=== PATIENT | female | born 1940 | race Caucasian/White ===

== ENCOUNTER 2024-08-18 20:21 | Emergency (ER) | payer MEDICARE, SELFPAY ==
[2024-08-18] VITALS (44 sets, daily range): BP systolic 51–103; BP diastolic 23–54; PULSE 68–91; RESP 15–35; TEMP 35.4–36.3; O2SAT 94–100
--- NOTE | ~2024-08-18 | XR_ITS ---
CHEST RADIOGRAPH CLINICAL HISTORY: ET TUBE PLACEMENT . COMPARISON: None available TECHNIQUE: Single portable view of the chest. Examination is markedly limited by patient rotation and kyphosis. FINDINGS Endotracheal tube is identified with its tip projecting approximately 3 cm above the base of the gabrielle na. Nasogastric tube identified with its tip extending below the left hemidiaphragm, presumably within th e stomach. The superior mediastinum is widened, likely secondary to positioning. The remainder of the cardiomediastinal silhouette is otherwise unremarkable. Alveolar infiltrate within the left mid to lower lung field. Massive gaseous distention of the stomach IMPRESSION: Left mid to lower lobe infiltrate Widening of the mediastinum, likely secondary to positioning. Massive gaseous distention of the stomach. Supportive devices in excellent radiographic placement. Reviewed, dictated and finalized at location A. GOLF PROFESSIONAL
--- NOTE | ~2024-08-18 | CT_ITS ---
CLINICAL INDICATION: Altered mental status, sepsis, hypotension, abdominal distention COMPARISON: None. TECHNIQUE: Multiple contiguous axial images of the abdomen and pelvis were performed without the admi nistration of intravenous contrast The dose-length product (DLP) was 1871.04 mGy-cm. Automated exposure control and iterative reconstruction technique were employed. FINDINGS/OBSERVATIONS: Chest: Bilateral pleural effusions, with adjacent consolidation left greater than right. The heart is enlarged, without pericardial effusion. Abdomen and pelvis: Copious amounts of free intraperitoneal air are identified. No retroperitoneal air is appreciated. 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 Multiple loops of dilated air and fluid-filled small bowel are identified, consistent with bowel obst ruction. Significant fecal stasis within the colon. 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 The epicenter of this air is within the upper stomach, both surrounding the fundus of the stomach, an d extending laterally across the gastric wall into the perigastric and perisplenic fat. Free extraluminal air is also identified outlining the second and third portion of the duodenum, as w ell as within the lesser sac. Orogastric tube extends to the stomach. IMPRESSION: Copious amounts of free intraperitoneal air, possibly originating from the stomach, however additiona l findings suggestive of distal colon and small bowel obstruction, secondary to fecal stasis within t he colon. These findings were discussed with torito Garcia nurse in the emergency department at 11:55 PM on 08/19 Reviewed, dictated and finalized at location A. TAL MARKETING ANALYST IMPRESSION: Copious amounts of free intraperitoneal air, possibly originating from the stom ach, however additional findings suggestive of distal colon and small bowel obs truction, secondary to fecal stasis within the colon. These findings were discussed with Radha charge nurse in the emergency departm ent at 11:55 PM on 08/19/2024
--- NOTE | ~2024-08-18 | XR_ITS ---
CHEST RADIOGRAPH CLINICAL HISTORY: CENTRAL LINE PLACEMENT . COMPARISON: Image of the chest post intubation performed 30 minutes earlier TECHNIQUE: Single portable view of the chest. FINDINGS Endotracheal tube approximately 3 cm above the base of the jani. Orogastric tube extends below the left hemidiaphragm, presumably within the stomach. Interval decompression of the stomach since previous radiograph. Interval placement of a right internal jugular central venous catheter with its tip projecting over t he cavoatrial junction. The right lung is fully inflated. Coarse interstitial lung markings within the left hemithorax. IMPRESSION: Interval placement of a right internal jugular central venous catheter in excellent position and read y for immediate use. Reviewed, dictated and finalized at location A. INE II CUTTER IMPRESSION: Interval placement of a right internal jugular central venous catheter in excel lent position and ready for immediate use.
--- NOTE | ~2024-08-18 | CT_ITS ---
History: Altered mental status. Sepsis and hypotension PROCEDURE: CT head without contrast. COMPARISON: None TECHNIQUE: Axial imaging of the head performed from the skull base to the vertex without IV contrast. Sagittal a nd coronal reformations obtained. DLP: 681 mGy-cm FINDINGS: The ventricles are enlarged. The dilatation of the ventricles is proportional to the degree of sulcal prominence, not uncommon in the senescent brain. Decreased attenuation is identified within the periventricular white matter, likely secondary to micr ovascular ischemic disease, in a patient of this age. There is no mass, mass effect or midline shift. There is no abnormal extra-axial fluid collection or intracranial hemorrhage. Visualized paranasal sinuses are clear. The mastoid air cells are well aerated. No acute displaced fractures within the overlying cranium. Impression: No acute intracranial hemorrhage or suspicious mass effect. Reviewed, dictated and finalized at location A. F COINS INSPECTOR Impression: No acute intracranial hemorrhage or suspicious mass effect.
--- NOTE | ~2024-08-18 | CT_ITS ---
History: Altered mental status PROCEDURE: CT cervical spine without intravenous contrast. COMPARISON: None TECHNIQUE: Multiple contiguous axial images of the cervical spine were performed without the administration of i ntravenous contrast. DLP: 424 mGy-cm FINDINGS: Straightening and slight reversal of the normal curvature of the cervical spine is identified, possib ly muscular in origin. Grade 1 anterolisthesis of C2 on 2 C3. Significant degenerative disease is also noted, with osteophyte formation, disc space narrowing, endp late changes and facet arthropathy. A heterogeneous appearance of the bone marrow is also detected for which a systemic process is suspec vini. No acute fractures are present. Right apical scarring which will be evaluated further on this CT examination of the chest abdomen and pelvis, performed the same day. No soft tissue abnormality is present. The airway is patent with endotracheal tube in position. Impression: Straightening and slight reversal of the normal curvature of the cervical spine, possibly muscular in origin. 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 Reviewed, dictated and finalized at location A. TECH Impression: Straightening and slight reversal of the normal curvature of the cervical spine , possibly muscular in origin. 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
--- NOTE | 2024-08-18 20:29 | ECG_ITS ---
Test Date: 2024-08-18 20:30:04 Measurements Intervals [place] Rate: 96 P: 43 OR: 237 QRS: 107 QRSD: 146 T: -21 QT: 351 QTc: 444 Interpretive Statements SINUS RHYTHM WITH FIRST DEGREE AV BLOCK RIGHT BUNDLE BRANCH BLOCK LEFT POSTERIOR FASCICULAR BLOCK BASELINE ARTIFACT-- II, III, AVR, V3-V6 ABNORMAL ECG No previous ECG available for comparison Electronically Signed On 08-19-2024 06:11:37 KNOCKER OUT by Bro Albert D.O.
--- NOTE | 2024-08-18 20:44 | PC.NURSE ---
Dr. Villeda at bedside advising intubation of patient. 18 G Iv established in left upper arm and 25 mm IO placed left tibial tuberosity. 20 mg of Etomidate administered 2047; 100 mg Rocuronium administered at 2048. Patient intubated with a 7.5 cm ETT with positive colormetric and auscultation at 25 @ the lip. VORB for 1 mg of Dilaudid and 2 mg of Ativan at 2047 for sedation. VORB for 3 L of Normal Saline. Natarajan catheter placed at 2049. OG placed by NILA Villeda.
[2024-08-18] MEDS: LORazepam INJ (*CRX) 2 MG/ML VIAL (20:48)
[2024-08-18] MEDS: HYDROmorphone HCL INJ (*CRX) 1 MG/ML SYR (20:49)
[2024-08-18] MEDS: NOREPINEPHRINE 8 MG/D5W 250 ML 8 MG/250 ML BAG 9.38 MG IV CONT (21:18)
--- NOTE | 2024-08-18 21:38 | ED.GENADULT ---
HPI - General Adult General Chief complaint: Altered Mental Status <Donny Villeda MD - Last Filed: 08/18/24 22:31> Stated complaint: SOB <Donny Villeda MD - Last Filed: 08/18/24 22:31> Time Seen by Provider: 08/18/24 20:54 <Donny Villeda MD - Last Filed: 08/18/24 22:31> History of Present Illness HPI narrative: This is an 84-year-old woman from the senior living presenting for shortness of breath. shelter found her on rounds hypoxic in the 70s on room air. That time she was responsive to pain breathing actually. EMS was called and they used a BVM to raise her saturations to the 90s. The patient cannot provide any information due to altered mental status. Patient had DNR DNI comfort measures paperwork signed by her son. I called her son to inform her of the patient's condition. When I explained that she was critically ill and that her paperwork said comfort measures only he revoked he DNR DNI said that he wanted full treatment. Patient's son is currently in [place] and cannot come to bedside. <Donny Villeda MD - Last Filed: 08/18/24 22:31> Related Data Allergies/adverse reactions: Allergies Allergy/AdvReac Type Severity Reaction Status Date / Time Sulfa (Sulfonamide Allergy Rash Verified 08/18/24 22:15 Antibiotics) <Donny Villeda MD - Last Filed: 08/18/24 22:31> Exam Narrative: APPEARANCE: Patient is toxic appearing, she is breathing agonally, Head: atraumatic. EYES: EOMI, NOSE: Atraumatic NECK: Trachea midline RESPIRATORY: Hypoxic on room air, agonal breathing CARDIOVASCULAR: Poor cap refill ABDOMINAL: Distended, colostomy bag in place with bulging around the base MUSCULOSKELETAl: No obvious deformities NEURO: Responds to voice, moves 4 extremities to pain SKIN:: Pale cool diaphoretic PSYCHIATRIC: Lethargic <Donny Villeda MD - Last Filed: 08/18/24 22:31> Course Course Emergency Course: Patient signed out to me at shift change, intubated and mechanically ventilated, central line in place with norepi initiated, pending results of work up. Cr 1.83 with no prior for comparison thus likely AMANDA versus acute renal failure. 2nd pressor started. Imaging as below. Notified Dr Flores of the findings of imaging but of severity of clinical condition and that remains hemodynamically unstable with poor prognosis and will attempt to discuss with family again given no other family members have arrived. Discussed with Dr Brandt and Dr kwan as well. Patient has no/scant urine output. She remains significantly hypotensive with systolic blood pressure ranging between 40 and 60 despite 2 vasopressors at their maximum. Spoke with patient's son Levi at length on the phone and explained the findings of her work up so far. He and other family are on vacation currently. He asked about timeline as it related to prognosis and I explained the gravity of her condition. We discussed a more comfort focused approach, discontinuing pressors and extubating and allowing her body to respond with a natural . He does agree to this and asks that I call him back when she passes. Pressors stopped and extubated by RT. Patient quickly expires. Pupils fixed and dilated, no heart sounds or spontaneous respirations, no gag reflex. Time of 02:40 on 08/19/24. Called son Levi again to inform her of her . Family state she had been at a senior living in [facility] for nearly 20 years and her medical care had been through [facility] / [facility] prior to this. PCP had been Dr Aceves but they don't know if he is retired. Will likely choose a home in [place], [place] though will look into this. Request care coordination call them at any time once they arrive to walk through next steps. CRITICAL CARE = 60 minutes independent of separately billable procedures. Includes time spent at patient's bedside evaluating her, ordering additional labs/studies and interpreting them, discussions with family and consultants/hospital teams, managing care, and documenting. <Elly Coffey MD - Last Filed: 08/19/24 14:50> Vital Signs Vital signs: Vital Signs Temperature 97.4 F L 08/18/24 20:22 Pulse Rate 91 08/18/24 20:22 Respiratory Rate 31 H 08/18/24 20:22 Blood Pressure 76/52 L 08/18/24 20:22 Pulse Oximetry 96 08/18/24 20:22 Oxygen Delivery Non-Rebreather Mask 08/18/24 20:22 Oxygen Flow Rate 15 08/18/24 20:22 Temperature 98.3 F 08/19/24 01:46 Pulse Rate 64 08/19/24 02:19 Respiratory Rate 18 08/19/24 01:46 Blood Pressure 44/28 L 08/19/24 02:19 Pulse Oximetry 94 08/19/24 01:42 Oxygen Delivery Mechanical Ventilation 08/19/24 01:30 Oxygen Flow Rate 15 08/18/24 20:22 Fraction of Inspired Oxygen 50 08/19/24 01:30 <Donny Villeda MD - Last Filed: 08/18/24 22:31> Vital Signs Temperature 97.4 F L 08/18/24 20:22 Pulse Rate 91 08/18/24 20:22 Respiratory Rate 31 H 08/18/24 20:22 Blood Pressure 76/52 L 08/18/24 20:22 Pulse Oximetry 96 08/18/24 20:22 Oxygen Delivery Non-Rebreather Mask 08/18/24 20:22 Oxygen Flow Rate 15 08/18/24 20:22 Temperature 98.3 F 08/19/24 01:46 Pulse Rate 64 08/19/24 02:19 Respiratory Rate 18 08/19/24 01:46 Blood Pressure 44/28 L 08/19/24 02:19 Pulse Oximetry 94 08/19/24 01:42 Oxygen Delivery Mechanical Ventilation 08/19/24 01:30 Oxygen Flow Rate 15 08/18/24 20:22 Fraction of Inspired Oxygen 50 08/19/24 01:30 <Elly Coffey MD - Last Filed: 08/19/24 14:50> Procedures Central Line Placement Right IJ: Central Line Date: 08/18/24 <Donny Villeda MD - Last Filed: 08/18/24 22:31> Discussed w/ the patient/family/POA,the placement of a central venous catheter, including its clinical necessity/indication & associated potential risks, benifits and alternatives.: Yes <Donny Villeda MD - Last Filed: 08/18/24 22:31> The patient/family/POA understand(s) and acknowledge(s) the need to proceed with central venous catheter insertion as an important element of the patient's clinical management.: Yes <Donny Villeda MD - Last Filed: 08/18/24 22:31> Performed Emergently - Given emergent patient condition, temporal constraints may have precluded informed consent.: Yes <Donny Villeda MD - Last Filed: 08/18/24 22:31> Time Out Performed: Yes <Donny Villeda MD - Last Filed: 08/18/24 22:31> Patient Placed on Monitor/Pulse Ox: Yes <Donny Villeda MD - Last Filed: 08/18/24 22:31> Max. Sterile Barrier Technique: Caps <Donny Villeda MD - Last Filed: 08/18/24 22:31> Central Line Prep: 2% chlorhexidine scrub and sterile drapes applied <Donny Villeda MD - Last Filed: 08/18/24 22:31> Technique: US-Guided <Donny Villeda MD - Last Filed: 08/18/24 22:31> Ultrasound Used for Placement: Yes <Donny Villeda MD - Last Filed: 08/18/24 22:31> Post Procedure: sutured in place <Donny Villeda MD - Last Filed: 08/18/24 22:31> Post Procedure X-Ray: tip of catheter in good position and no pneumothorax seen <Donny Villeda MD - Last Filed: 08/18/24 22:31> Patient Tolerated Procedure: well <Donny Villeda MD - Last Filed: 08/18/24 22:31> Complications: none <Donny Villeda MD - Last Filed: 08/18/24 22:31> Intubation Intubation #1: Intubation Date: 08/18/24 <Donny Villeda MD - Last Filed: 08/18/24 22:31> Time out performed: Yes <Donny Villeda MD - Last Filed: 08/18/24 22:31> sedative: Etomidate <Donny Villeda MD - Last Filed: 08/18/24 22:31> Mg Given: 20 <Donny Villeda MD - Last Filed: 08/18/24 22:31> paralytic: Rocuronium <Donny Villeda MD - Last Filed: 08/18/24 22:31> Mg Given: 100 <Donny Villeda MD - Last Filed: 08/18/24 22:31> Laryngoscope: Gala (Video layrngoscope) <Donny Villeda MD - Last Filed: 08/18/24 22:31> Tube Size (cm): 7.5 <Donny Villeda MD - Last Filed: 08/18/24 22:31> Method of Intubation: orotracheal <Donny Villeda MD - Last Filed: 08/18/24 22:31> Number of Attempts: 1 <Donny Villeda MD - Last Filed: 08/18/24 22:31> Tube Secured Depth (cm): 23 <Donny Villeda MD - Last Filed: 08/18/24 22:31> Tube Secured Location: teeth <Donny Villeda MD - Last Filed: 08/18/24 22:31> Tube Placement Confirmation: visualized tube passing through cords, equal breath sounds bilaterally, no breath sounds over epigastrium and confirmation by capnometry <Donny Villeda MD - Last Filed: 08/18/24 22:31> Patient Tolerated Procedure: well <Donny Villeda MD - Last Filed: 08/18/24 22:31> Intubation Complications: none <Donny Villeda MD - Last Filed: 08/18/24 22:31> Medical Decision Making MDM Narrative Medical decision making narrative: -Course: 84-year-old female presenting and extremis. Hypoxic, hypotensive cool to touch. Patient's comfort measures only however when I called to inform her son of his could her condition he rescinded all DNR/DNI/comfort measures and wants full code. I explained to him the patient's clinical situation and unfortunately he is out of town and is not willing to make her comfort measures at this time. The patient was intubated. She was then hypotensive required fluid resuscitation and norepinephrine. She was started on broad-spectrum antibiotics. Workup was pending at the time of sign-out she has been signed out to the oncoming physician will require admission -DDX includes but is not limited to: Sepsis, pneumonia, UTI, dehydration, viral syndrome <Donny Villeda MD - Last Filed: 08/18/24 22:31> Vital Signs Vital Signs: Vital Signs Temperature 97.4 F L 08/18/24 20:22 Pulse Rate 91 08/18/24 20:22 Respiratory Rate 31 H 08/18/24 20:22 Blood Pressure 76/52 L 08/18/24 20:22 Pulse Oximetry 96 08/18/24 20:22 Oxygen Delivery Non-Rebreather Mask 08/18/24 20:22 Oxygen Flow Rate 15 08/18/24 20:22 Temperature 98.3 F 08/19/24 01:46 Pulse Rate 64 08/19/24 02:19 Respiratory Rate 18 08/19/24 01:46 Blood Pressure 44/28 L 08/19/24 02:19 Pulse Oximetry 94 08/19/24 01:42 Oxygen Delivery Mechanical Ventilation 08/19/24 01:30 Oxygen Flow Rate 15 08/18/24 20:22 Fraction of Inspired Oxygen 50 08/19/24 01:30 <Donny Villeda MD - Last Filed: 08/18/24 22:31> Vital Signs Temperature 97.4 F L 08/18/24 20:22 Pulse Rate 91 08/18/24 20:22 Respiratory Rate 31 H 08/18/24 20:22 Blood Pressure 76/52 L 08/18/24 20:22 Pulse Oximetry 96 08/18/24 20:22 Oxygen Delivery Non-Rebreather Mask 08/18/24 20:22 Oxygen Flow Rate 15 08/18/24 20:22 Temperature 98.3 F 08/19/24 01:46 Pulse Rate 64 08/19/24 02:19 Respiratory Rate 18 08/19/24 01:46 Blood Pressure 44/28 L 08/19/24 02:19 Pulse Oximetry 94 08/19/24 01:42 Oxygen Delivery Mechanical Ventilation 08/19/24 01:30 Oxygen Flow Rate 15 08/18/24 20:22 Fraction of Inspired Oxygen 50 08/19/24 01:30 <Elly Coffey MD - Last Filed: 08/19/24 14:50> Lab Data Result diagrams: 08/18/24 21:40 08/18/24 21:40 <Donny Villeda MD - Last Filed: 08/18/24 22:31> Labs: Lab Results 08/18/24 08/18/24 08/19/24 Range/Units 21:40 21:41 00:11 WBC 14.5 H (4.5-10.0) K/mm3 RBC 3.19 L (4.2-5.4) M/mm3 Hgb 10.0 L (12.0-15.0) g/dL Hct 32.8 L (37.0-47.0) % MCV 102.8 H (80-100) fl MCH 31.3 (26-34) pg MCHC 30.5 L (32-36) g/dl RDW 14.8 H (11.5-14.5) % Plt Count 171 (150-375) k/mm3 MPV 12.2 H (7.4-10.4) fl Immature Gran % (Auto) Not Reportable Neut % (Auto) Not Reportable Lymph % (Auto) Not Reportable [place] % (Auto) Not Reportable Eos % (Auto) Not Reportable Baso % (Auto) Not Reportable Lymph # (Auto) Not Reportable [place] # (Auto) Not Reportable Eos # (Auto) Not Reportable Baso # (Auto) Not Reportable Abs Immat Gran (auto) Not Reportable Absolute Neuts (auto) Not Reportable Absolute Nucleated RBC Not Reportable Total Counted 100 Neutrophils % (Manual) 73 (46-73) % Band Neutrophils % 8 H (0-6) % Lymphocytes % (Manual) 12.0 L (18-44) % Monocytes % (Manual) 7 (3-9) % Nucleated RBC % Not Reportable Abs Neuts (Manual) 11.74 H (1.7-7.2) K/mm3 Abs Lymphs (Manual) 1.74 (1.1-4.5) K/mm3 Abs Monocytes (Manual) 1.01 H (0.1-0.90) K/mm3 Platelet Estimate Adequate (Adequate) Hypochromasia 1+ Schistocytes None seen PT 16.4 H (11.1-14.7) Seconds INR 1.3 APTT 28.2 (22.3-36.8) Seconds Minute Volume Not Reportable Vent Mode Cmv Tidal Volume 400 ml PEEP 5 cmH2O Peak Inspir Pressure Not Reportable Pressure Support Not Reportable Sodium 142 (137-145) mmol/L Potassium 3.8 (3.4-5.0) mmol/L Chloride 106 (98-107) mmol/L Carbon Dioxide 17 L (22-30) mmol/L Anion Gap 19 H (4-12) mmol/L BUN 38 H (7-17) mg/dL Creatinine 1.83 H (0.7-1.0) mg/dL Estim Creat Clear Calc 23 ml/min Estimated GFR 26 L (59 - ) Glucose 287 H (65-110) mg/dL Lactic Acid 8.9 H* (0.7-2.0) mmol/L Calcium 9.2 (8.4-10.2) mg/dL Phosphorus 5.0 H (2.5-4.5) mg/dL Magnesium 1.2 L (1.6-2.3) mg/dL Total Bilirubin 0.3 (0.2-1.3) mg/dL AST 26 (14-36) U/L ALT 23 (6-35) U/L Alkaline Phosphatase 50 (38-126) U/L Total Creatine Kinase 147 H (30-135) U/L Troponin I 0.037 H* (0.000-0.034) ng/mL NT-Pro-B Natriuret Pep 1120 H (19.9-100) pg/mL Total Protein 5.0 L (6.3-8.2) g/dL Albumin 2.4 L (3.5-5.1) g/dL Lipase 3713 H (23-300) U/L Procalcitonin 0.1 ng/mL TSH 22.800 H (0.465-4.680) uIU/mL Thyroxine (T4) (5.53-11.0) ug/dL Urine Color Dark yellow (Yellow) Urine Appearance Turbid H (Clear) Urine pH 5.0 (5.0-9.0) Ur Specific [place] 1.021 (1.001-1.035) Urine Protein 1+ H (Negative) mg/dL Urine Glucose (UA) Negative (Negative) mg/dL Urine Ketones Trace H (Negative) mg/dL Ur Blood (Man) Negative (Negative) Urine Nitrate Negative (Negative) Urine Bilirubin Negative (Negative) Urine Urobilinogen 1.0 (<2.0) mg/dL Leukocyte Esterase Rfl 3+ H (Negative) SARAHY/UL Urine RBC >100 H (0-2) /hpf Urine WBC >100 H (0-3) /hpf Ur Squamous Epith Cells Occasional (Few) /hpf Urine Bacteria 4+ /hpf Urine Casts >20 Hyaline Casts Present (None) /lpf Nasal MRSA (PCR) Not detected (NOT DETECTE) Salicylates < 1.0 L (2-20) mg/dL Urine Opiates Screen Negative (Negative) Urine Methadone Screen Negative (Negative) Acetaminophen < 10 L (10-30) ug/mL Ur Barbiturates Screen Negative (Negative) Ur Phencyclidine Scrn Negative (Negative) Ur Amphetamine Screen Negative (Negative) U Benzodiazepines Scrn Negative (Negative) Urine Cocaine Screen Negative (Negative) U Cannabinoids Screen Negative (Negative) Ethyl Alcohol < 10 (<10) mg/dL Influenza A (RT-PCR) Negative (Negative) Influenza B (RT-PCR) Negative (Negative) RSV (RT-PCR) Negative (Negative) SARS-CoV-2 RNA (RT-PCR) Negative (Negative) 08/19/24 08/19/24 Range/Units 01:28 21:40 WBC (4.5-10.0) K/mm3 RBC (4.2-5.4) M/mm3 Hgb (12.0-15.0) g/dL Hct (37.0-47.0) % MCV (80-100) fl MCH (26-34) pg MCHC (32-36) g/dl RDW (11.5-14.5) % Plt Count (150-375) k/mm3 MPV (7.4-10.4) fl Immature Gran % (Auto) Neut % (Auto) Lymph % (Auto) [place] % (Auto) Eos % (Auto) Baso % (Auto) Lymph # (Auto) [place] # (Auto) Eos # (Auto) Baso # (Auto) Abs Immat Gran (auto) Absolute Neuts (auto) Absolute Nucleated RBC Total Counted Neutrophils % (Manual) (46-73) % Band Neutrophils % (0-6) % Lymphocytes % (Manual) (18-44) % Monocytes % (Manual) (3-9) % Nucleated RBC % Abs Neuts (Manual) (1.7-7.2) K/mm3 Abs Lymphs (Manual) (1.1-4.5) K/mm3 Abs Monocytes (Manual) (0.1-0.90) K/mm3 Platelet Estimate (Adequate) Hypochromasia Schistocytes PT (11.1-14.7) Seconds INR APTT (22.3-36.8) Seconds Minute Volume Vent Mode Tidal Volume ml PEEP cmH2O Peak Inspir Pressure Pressure Support Sodium (137-145) mmol/L Potassium (3.4-5.0) mmol/L Chloride (98-107) mmol/L Carbon Dioxide (22-30) mmol/L Anion Gap (4-12) mmol/L BUN (7-17) mg/dL Creatinine (0.7-1.0) mg/dL Estim Creat Clear Calc ml/min Estimated GFR (59 - ) Glucose (65-110) mg/dL Lactic Acid 6.5 H* (0.7-2.0) mmol/L Calcium (8.4-10.2) mg/dL Phosphorus (2.5-4.5) mg/dL Magnesium (1.6-2.3) mg/dL Total Bilirubin (0.2-1.3) mg/dL AST (14-36) U/L ALT (6-35) U/L Alkaline Phosphatase (38-126) U/L Total Creatine Kinase (30-135) U/L Troponin I (0.000-0.034) ng/mL NT-Pro-B Natriuret Pep (19.9-100) pg/mL Total Protein (6.3-8.2) g/dL Albumin (3.5-5.1) g/dL Lipase (23-300) U/L Procalcitonin ng/mL TSH (0.465-4.680) uIU/mL Thyroxine (T4) 2.63 L (5.53-11.0) ug/dL Urine Color (Yellow) Urine Appearance (Clear) Urine pH (5.0-9.0) Ur Specific [place] (1.001-1.035) Urine Protein (Negative) mg/dL Urine Glucose (UA) (Negative) mg/dL Urine Ketones (Negative) mg/dL Ur Blood (Man) (Negative) Urine Nitrate (Negative) Urine Bilirubin (Negative) Urine Urobilinogen (<2.0) mg/dL Leukocyte Esterase Rfl (Negative) SARAHY/UL Urine RBC (0-2) /hpf Urine WBC (0-3) /hpf Ur Squamous Epith Cells (Few) /hpf Urine Bacteria /hpf Urine Casts Hyaline Casts (None) /lpf Nasal MRSA (PCR) (NOT DETECTE) Salicylates (2-20) mg/dL Urine Opiates Screen (Negative) Urine Methadone Screen (Negative) Acetaminophen (10-30) ug/mL Ur Barbiturates Screen (Negative) Ur Phencyclidine Scrn (Negative) Ur Amphetamine Screen (Negative) U Benzodiazepines Scrn (Negative) Urine Cocaine Screen (Negative) U Cannabinoids Screen (Negative) Ethyl Alcohol (<10) mg/dL Influenza A (RT-PCR) (Negative) Influenza B (RT-PCR) (Negative) RSV (RT-PCR) (Negative) SARS-CoV-2 RNA (RT-PCR) (Negative) <Donny Villeda MD - Last Filed: 08/18/24 22:31> Lab Results 08/18/24 08/18/24 08/19/24 Range/Units 21:40 21:41 00:11 WBC 14.5 H (4.5-10.0) K/mm3 RBC 3.19 L (4.2-5.4) M/mm3 Hgb 10.0 L (12.0-15.0) g/dL Hct 32.8 L (37.0-47.0) % MCV 102.8 H (80-100) fl MCH 31.3 (26-34) pg MCHC 30.5 L (32-36) g/dl RDW 14.8 H (11.5-14.5) % Plt Count 171 (150-375) k/mm3 MPV 12.2 H (7.4-10.4) fl Immature Gran % (Auto) Not Reportable Neut % (Auto) Not Reportable Lymph % (Auto) Not Reportable [place] % (Auto) Not Reportable Eos % (Auto) Not Reportable Baso % (Auto) Not Reportable Lymph # (Auto) Not Reportable [place] # (Auto) Not Reportable Eos # (Auto) Not Reportable Baso # (Auto) Not Reportable Abs Immat Gran (auto) Not Reportable Absolute Neuts (auto) Not Reportable Absolute Nucleated RBC Not Reportable Total Counted 100 Neutrophils % (Manual) 73 (46-73) % Band Neutrophils % 8 H (0-6) % Lymphocytes % (Manual) 12.0 L (18-44) % Monocytes % (Manual) 7 (3-9) % Nucleated RBC % Not Reportable Abs Neuts (Manual) 11.74 H (1.7-7.2) K/mm3 Abs Lymphs (Manual) 1.74 (1.1-4.5) K/mm3 Abs Monocytes (Manual) 1.01 H (0.1-0.90) K/mm3 Platelet Estimate Adequate (Adequate) Hypochromasia 1+ Schistocytes None seen PT 16.4 H (11.1-14.7) Seconds INR 1.3 APTT 28.2 (22.3-36.8) Seconds Minute Volume Not Reportable Vent Mode Cmv Tidal Volume 400 ml PEEP 5 cmH2O Peak Inspir Pressure Not Reportable Pressure Support Not Reportable Sodium 142 (137-145) mmol/L Potassium 3.8 (3.4-5.0) mmol/L Chloride 106 (98-107) mmol/L Carbon Dioxide 17 L (22-30) mmol/L Anion Gap 19 H (4-12) mmol/L BUN 38 H (7-17) mg/dL Creatinine 1.83 H (0.7-1.0) mg/dL Estim Creat Clear Calc 23 ml/min Estimated GFR 26 L (59 - ) Glucose 287 H (65-110) mg/dL Lactic Acid 8.9 H* (0.7-2.0) mmol/L Calcium 9.2 (8.4-10.2) mg/dL Phosphorus 5.0 H (2.5-4.5) mg/dL Magnesium 1.2 L (1.6-2.3) mg/dL Total Bilirubin 0.3 (0.2-1.3) mg/dL AST 26 (14-36) U/L ALT 23 (6-35) U/L Alkaline Phosphatase 50 (38-126) U/L Total Creatine Kinase 147 H (30-135) U/L Troponin I 0.037 H* (0.000-0.034) ng/mL NT-Pro-B Natriuret Pep 1120 H (19.9-100) pg/mL Total Protein 5.0 L (6.3-8.2) g/dL Albumin 2.4 L (3.5-5.1) g/dL Lipase 3713 H (23-300) U/L Procalcitonin 0.1 ng/mL TSH 22.800 H (0.465-4.680) uIU/mL Thyroxine (T4) (5.53-11.0) ug/dL Urine Color Dark yellow (Yellow) Urine Appearance Turbid H (Clear) Urine pH 5.0 (5.0-9.0) Ur Specific [place] 1.021 (1.001-1.035) Urine Protein 1+ H (Negative) mg/dL Urine Glucose (UA) Negative (Negative) mg/dL Urine Ketones Trace H (Negative) mg/dL Ur Blood (Man) Negative (Negative) Urine Nitrate Negative (Negative) Urine Bilirubin Negative (Negative) Urine Urobilinogen 1.0 (<2.0) mg/dL Leukocyte Esterase Rfl 3+ H (Negative) SARAHY/UL Urine RBC >100 H (0-2) /hpf Urine WBC >100 H (0-3) /hpf Ur Squamous Epith Cells Occasional (Few) /hpf Urine Bacteria 4+ /hpf Urine Casts >20 Hyaline Casts Present (None) /lpf Nasal MRSA (PCR) Not detected (NOT DETECTE) Salicylates < 1.0 L (2-20) mg/dL Urine Opiates Screen Negative (Negative) Urine Methadone Screen Negative (Negative) Acetaminophen < 10 L (10-30) ug/mL Ur Barbiturates Screen Negative (Negative) Ur Phencyclidine Scrn Negative (Negative) Ur Amphetamine Screen Negative (Negative) U Benzodiazepines Scrn Negative (Negative) Urine Cocaine Screen Negative (Negative) U Cannabinoids Screen Negative (Negative) Ethyl Alcohol < 10 (<10) mg/dL Influenza A (RT-PCR) Negative (Negative) Influenza B (RT-PCR) Negative (Negative) RSV (RT-PCR) Negative (Negative) SARS-CoV-2 RNA (RT-PCR) Negative (Negative) 08/19/24 08/19/24 Range/Units 01:28 21:40 WBC (4.5-10.0) K/mm3 RBC (4.2-5.4) M/mm3 Hgb (12.0-15.0) g/dL Hct (37.0-47.0) % MCV (80-100) fl MCH (26-34) pg MCHC (32-36) g/dl RDW (11.5-14.5) % Plt Count (150-375) k/mm3 MPV (7.4-10.4) fl Immature Gran % (Auto) Neut % (Auto) Lymph % (Auto) [place] % (Auto) Eos % (Auto) Baso % (Auto) Lymph # (Auto) [place] # (Auto) Eos # (Auto) Baso # (Auto) Abs Immat Gran (auto) Absolute Neuts (auto) Absolute Nucleated RBC Total Counted Neutrophils % (Manual) (46-73) % Band Neutrophils % (0-6) % Lymphocytes % (Manual) (18-44) % Monocytes % (Manual) (3-9) % Nucleated RBC % Abs Neuts (Manual) (1.7-7.2) K/mm3 Abs Lymphs (Manual) (1.1-4.5) K/mm3 Abs Monocytes (Manual) (0.1-0.90) K/mm3 Platelet Estimate (Adequate) Hypochromasia Schistocytes PT (11.1-14.7) Seconds INR APTT (22.3-36.8) Seconds Minute Volume Vent Mode Tidal Volume ml PEEP cmH2O Peak Inspir Pressure Pressure Support Sodium (137-145) mmol/L Potassium (3.4-5.0) mmol/L Chloride (98-107) mmol/L Carbon Dioxide (22-30) mmol/L Anion Gap (4-12) mmol/L BUN (7-17) mg/dL Creatinine (0.7-1.0) mg/dL Estim Creat Clear Calc ml/min Estimated GFR (59 - ) Glucose (65-110) mg/dL Lactic Acid 6.5 H* (0.7-2.0) mmol/L Calcium (8.4-10.2) mg/dL Phosphorus (2.5-4.5) mg/dL Magnesium (1.6-2.3) mg/dL Total Bilirubin (0.2-1.3) mg/dL AST (14-36) U/L ALT (6-35) U/L Alkaline Phosphatase (38-126) U/L Total Creatine Kinase (30-135) U/L Troponin I (0.000-0.034) ng/mL NT-Pro-B Natriuret Pep (19.9-100) pg/mL Total Protein (6.3-8.2) g/dL Albumin (3.5-5.1) g/dL Lipase (23-300) U/L Procalcitonin ng/mL TSH (0.465-4.680) uIU/mL Thyroxine (T4) 2.63 L (5.53-11.0) ug/dL Urine Color (Yellow) Urine Appearance (Clear) Urine pH (5.0-9.0) Ur Specific [place] (1.001-1.035) Urine Protein (Negative) mg/dL Urine Glucose (UA) (Negative) mg/dL Urine Ketones (Negative) mg/dL Ur Blood (Man) (Negative) Urine Nitrate (Negative) Urine Bilirubin (Negative) Urine Urobilinogen (<2.0) mg/dL Leukocyte Esterase Rfl (Negative) SARAHY/UL Urine RBC (0-2) /hpf Urine WBC (0-3) /hpf Ur Squamous Epith Cells (Few) /hpf Urine Bacteria /hpf Urine Casts Hyaline Casts (None) /lpf Nasal MRSA (PCR) (NOT DETECTE) Salicylates (2-20) mg/dL Urine Opiates Screen (Negative) Urine Methadone Screen (Negative) Acetaminophen (10-30) ug/mL Ur Barbiturates Screen (Negative) Ur Phencyclidine Scrn (Negative) Ur Amphetamine Screen (Negative) U Benzodiazepines Scrn (Negative) Urine Cocaine Screen (Negative) U Cannabinoids Screen (Negative) Ethyl Alcohol (<10) mg/dL Influenza A (RT-PCR) (Negative) Influenza B (RT-PCR) (Negative) RSV (RT-PCR) (Negative) SARS-CoV-2 RNA (RT-PCR) (Negative) <Elly Coffey MD - Last Filed: 08/19/24 14:50> ABG Data ABG results: 08/18/24 21:41 Puncture Site Right radial ABG pH 7.233 L* ABG pCO2 38.7 ABG pO2 142.3 H ABG PO2/FiO2 Ratio 1.42 ABG HCO3 16.0 L ABG O2 Saturation 98.4 ABG O2 Content 16.0 ABG Base Excess -10.8 A-a Gradient 532.0 Oxyhemoglobin 98.1 Total Hemoglobin 11.4 L O2 Delivery Device Ventilator O2 Liters/Min Not Reportable Vent Rate 18 FiO2 100 <Donny Villeda MD - Last Filed: 08/18/24 22:31> 08/18/24 21:41 Puncture Site Right radial ABG pH 7.233 L* ABG pCO2 38.7 ABG pO2 142.3 H ABG PO2/FiO2 Ratio 1.42 ABG HCO3 16.0 L ABG O2 Saturation 98.4 ABG O2 Content 16.0 ABG Base Excess -10.8 A-a Gradient 532.0 Oxyhemoglobin 98.1 Total Hemoglobin 11.4 L O2 Delivery Device Ventilator O2 Liters/Min Not Reportable Vent Rate 18 FiO2 100 <Elly Coffey MD - Last Filed: 08/19/24 14:50> Imaging Data Radiologist's impression: Impressions Chest X-Ray 08/18/24 21:23 IMPRESSION: Left mid to lower lobe infiltrate Widening of the mediastinum, likely secondary to positioning. Massive gaseous distention of the stomach. Supportive devices in excellent radiographic placement. Chest X-Ray 08/18/24 21:43 IMPRESSION: Interval placement of a right internal jugular central venous catheter in excellent position and ready for immediate use. Head CT 08/18/24 23:49 Impression: No acute intracranial hemorrhage or suspicious mass effect. Cervical Spine CT 08/18/24 23:51 Impression: Straightening and slight reversal of the normal curvature of the cervical spine, possibly muscular in origin. 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 Chest/Abdomen/Pelvis CT 08/18/24 23:59 IMPRESSION: Copious amounts of free intraperitoneal air, possibly originating from the stomach, however additional findings suggestive of distal colon and small bowel obstruction, secondary to fecal stasis within the colon. These findings were discussed with Radha charge nurse in the emergency department at 11:55 PM on 08/19/2024 <Elly Coffey MD - Last Filed: 08/19/24 14:50> Critical Care Time Critical Care Time Critical Care Time: Yes <Donny Villeda MD - Last Filed: 08/18/24 22:31> Total Critical Care Time: 75 <Donny Villeda MD - Last Filed: 08/18/24 22:31> Discharge Plan Discharge Clinical Impression: Altered mental status, Sepsis, Respiratory failure, Required emergent intubation, On mechanically assisted ventilation, Leukocytosis, Anemia, macrocytic, UTI (urinary tract infection), Pneumonia involving left lung, Hypotension, AMANDA (acute kidney injury), Hypomagnesemia, Hypoalbuminemia, Non-ST elevation LA (NSTEMI), Pancreatitis, Cardiopulmonary arrest <Donny Villeda MD - Last Filed: 08/18/24 22:31> Patient Disposition: <Donny Villeda MD - Last Filed: 08/18/24 22:31> Condition: <Donny Villeda MD - Last Filed: 08/18/24 22:31> Patient Language: Malay <Donny Villeda MD - Last Filed: 08/18/24 22:31> Follow-up/Referrals: UNKNOWN,DOCTOR [Primary Care Provider] - <Donny Villeda MD - Last Filed: 08/18/24 22:31>
[2024-08-18] MEDS: SODIUM CHLORIDE 0.9% IV 1,000 ML 999 ML IV CONT ×2 (21:43→21:44)
[2024-08-18] MEDS: SODIUM CHLORIDE 0.9% IV 900 ML 999 ML IV CONT (21:44)
[2024-08-18 21:51] LABS: Hematocrit 32.8 % (37.0-47.0); Mean Corpuscular HGB Conc 30.5 g/dl (32-36); Mean Corpuscular Hemoglobin 31.3 pg (26-34); Mean Corpuscular Volume 102.8 fl (80-100); Mean Platelet Volume 12.2 fl (7.4-10.4); Platelet Count Result 171 k/mm3 (150-375); Red Blood Count 3.19 M/mm3 (4.2-5.4); Red Cell Distribution Width 14.8 % (11.5-14.5); White Blood Count 14.5 K/mm3 (4.5-10.0)
[2024-08-18 22:03] LABS: Lactic Acid Reflex 8.9 mmol/L (0.7-2.0)
[2024-08-18 22:09] LABS: INR 1.3; Partial Thromboplastin Time 28.2 Seconds (22.3-36.8); Prothrombin Time 16.4 Seconds (11.1-14.7)
[2024-08-18 22:13] LABS: Add Urine Microscopic? YES; Appearance Urine Turbid (Clear); Bacteria Urine 4+ /hpf; Bilirubin Urine Negative (Negative); Blood Urine Negative (Negative); Color Urine Dark Yellow (Yellow); Glucose Urine UA Negative (Negative); Hyaline Casts Urine Present /lpf; Ketones Urine Trace mg/dL (Negative); Leukocyte Esterase Ur 3+ LEU/UL (Negative); Nitrate Urine Negative (Negative); Non Pathogenic Casts >20; Protein Urine 1+ mg/dL (Negative); RBC Urine >100 /hpf (0-2); Specific Grav Ur 1.021 (1.001-1.035); Squamous Epithelial Cell Urine Occasional /hpf (Few); WBC Urine >100 /hpf (0-3)
[2024-08-18 22:13] LABS: Base Excess ABG -10.8 mEq/l (+/-2.0); Fractional Inspired Oxygen 100 %; Oxygen Saturation ABG 98.4 % (95.0-100.0); Oxyhemoglobin 98.1 % THb (90.0-100.0); PCO2 ABG 38.7 mmHg (35.0-45.0); PO2 ABG 142.3 mmHg (80.0-100.0); PO2 FiO2 Ratio Arterial Blood 1.42 %; Total Hemoglobin 11.4 g/dL (12.0-18.0)
[2024-08-18 22:14] LABS: Arterial Blood Gas PEEP 5 cmH2O; Arterial Blood Gas Vent Mode CMV; Arterial Blood Gas Ventilator rate 18 /MIN; Device VENTILATOR; Modified Allen's Test Pass; Site Drawn RIGHT RADIAL; pH ABG 7.233 (7.350-7.450)
[2024-08-18 22:15] LABS: Arterial Blood Gas Tidal Volume 400 ml
[2024-08-18 22:19] LABS: Band Neutrophils Percent 8 % (0-6); Hypochromasia 1+; Lymphocytes Absolute Manual 1.74 K/mm3 (1.1-4.5); Monocytes Absolute Manual 1.01 K/mm3 (0.1-0.90); Monocytes Percent Manual 7 % (3-9); Neutrophils Absolute Manual 11.74 K/mm3 (1.7-7.2); Neutrophils Percent Manual 73 % (46-73); Platelet Estimate Adequate (Adequate); Schistocytes None Seen; Total Cells Counted 100
[2024-08-18] MEDS: CEFEPIME 2 GM/NS 50 ML 2 GM/50 ML BAG IVPB (22:25)
[2024-08-18 22:30] LABS: Influenza A QL RT-PCR Negative (Negative); Influenza B QL RT-PCR Negative (Negative); RSV RNA, RT-PCR Negative (Negative); SARS-CoV-2 RNA PCR Negative (Negative)
[2024-08-18] MEDS: MIDAZOLAM 100MG/NS 100ML(*CRX) 100 MG/100 ML BAG IV CONT (22:37)
[2024-08-18] MEDS: FENTANYL 2,500MCG/NS250ML(*CRX 2,500 MCG/250 ML BAG 10 MCG IV CONT (22:38)
[2024-08-18] MEDS: LACTATED RINGERS 1,000 ML 150 ML IV CONT (22:40)
[2024-08-18] MEDS: VASOPRESSIN INJ 100 UNITS in DEXTROSE 5% 95 ML IV CONT (23:09)
[2024-08-19] VITALS (21 sets, daily range): BP systolic 44–97; BP diastolic 28–69; PULSE 61–86; RESP 16–18; TEMP 35.9–36.8; O2SAT 93–94
[2024-08-19 00:10] LABS: Alanine Aminotransferase 23 U/L (6-35); Albumin Level 2.4 g/dL (3.5-5.1); Alkaline Phosphatase 50 U/L (38-126); Anion Gap 19 mmol/L (4-12); Aspartate Amino Transferase 26 U/L (14-36); Bilirubin,Total 0.3 mg/dL (0.2-1.3); Blood Urea Nitrogen 38 mg/dL (7-17); Calcium 9.2 mg/dL (8.4-10.2); Carbon Dioxide 17 mmol/L (22-30); Chloride 106 mmol/L (98-107); Estimated CRCL calculation 23 ml/min; Estimated Glomerular Filt Rate 26; Glucose 287 mg/dL (65-110); Magnesium 1.2 mg/dL (1.6-2.3); Potassium 3.8 mmol/L (3.4-5.0); Sodium 142 mmol/L (137-145)
[2024-08-19 00:13] LABS: NT Pro B Type Natriuretic Pept 1120 pg/mL (19.9-100)
[2024-08-19 00:14] LABS: Troponin I 0.037 ng/mL (0.000-0.034)
[2024-08-19 00:18] LABS: Procalcitonin 0.1 ng/mL
[2024-08-19] MEDS: MAGNESIUM SULF 1 GM/D5W 100 ML 1 GM/100 ML BAG IVPB (00:23)
[2024-08-19 00:30] LABS: Lipase 3713 U/L (23-300)
[2024-08-19 00:31] LABS: Creatine Kinase 147 U/L (30-135)
[2024-08-19 00:38] LABS: Amphetamine Screen Urine Negative (Negative); Barbiturate Screen Urine Negative (Negative); Benzodiazepines Screen Urine Negative (Negative); Cannabinoid Screen Urine Negative (Negative); Cocaine Screen Urine Negative (Negative); Methadone Screen Urine Negative (Negative); Opiate Screen Urine Negative (Negative); Phencyclidine Screen Urine Negative (Negative)
[2024-08-19 00:41] LABS: Acetaminophen < 10 ug/mL (10-30); Ethanol < 10 mg/dL (<10); Salicylate < 1.0 mg/dL (2-20)
[2024-08-19 00:49] LABS: Reflex Lactic Acid Yes or No Add Lactic
[2024-08-19 01:11] LABS: T4 Thyroxine 2.63 ug/dL (5.53-11.0)
[2024-08-19] MEDS: VANCOMYCIN 1,250 MG/NS 250 ML 1,250 MG/250 ML BAG 166.67 MG IVPB (01:29)
[2024-08-19 01:32] LABS: MRSA (PCR) NOT DETECTED (NOT DETECTE)
--- NOTE | 2024-08-19 01:55 | PC.NURSE ---
EDP aware of blood pressure and maximum dose of medications being administered.
[2024-08-19 01:57] LABS: Lactic Acid 6.5 mmol/L (0.7-2.0)
--- NOTE | 2024-08-19 02:21 | PC.NURSE ---
NILA Coffey states she spoke with family who want to place the patient back on comfort measures. Medications stopped.
--- NOTE | 2024-08-20 09:24 | PC.NURSE ---
Patients son was contacted by this RN to verify home choice for patient. [facility] home was selected by patients son Levi and home was contacted [place] [facility]. Removal of body form updated and taken to [facility].
== END 2024-08-19 02:40 | disposition expired ==
PROVIDERS: Emergency Medicine; Emergency Provider Student in an Organized Health Care Education/Training Program
DX: R41.82 Altered mental status, unspecified (principal); A41.9 Sepsis, unspecified organism; J96.90 Respiratory failure, unspecified, unspecified whether with hypoxia or hypercapnia; D53.9 Nutritional anemia, unspecified; N39.0 Urinary tract infection, site not specified; J18.9 Pneumonia, unspecified organism; I95.9 Hypotension, unspecified; N17.9 Acute kidney failure, unspecified; E83.42 Hypomagnesemia; E88.09 Other disorders of plasma-protein metabolism, not elsewhere classified; I21.4 Non-ST elevation (NSTEMI) myocardial infarction; K85.90 Acute pancreatitis without necrosis or infection, unspecified; I46.9 Cardiac arrest, cause unspecified; Z20.822 Contact with and (suspected) exposure to COVID-19
CPT/HCPCS: 31500; 36415; 36556; 36600; 70450; 71250; 72125; 74176; 80053; 80143; 80179; 80307; 81001; 82077; 82550; 82805; 83605; 83690; 83735; 83880; 84100; 84145; 84436; 84443; 84480; 84484; 85018; 85025; 85610; 85730; 87040; 87077; 87086; 87147; 87186; 87637; 87641; 93005; 94003; 96365; 96366; 96367; 96375; 99291; C1751; J0330; J0692; J1171; J2060; J2250; J3010; J3370; J3475; J7030; J7120